=== PATIENT | male | born 1955 | race Caucasian/White ===

== ENCOUNTER 2017-09-24 12:20 | Day surgery (SDC) | payer OTHER ==
[~2017-09-24 12:20] MED LIST: Buffered Lidocaine 0.9% SYRIN* 5 ML/SYR SYRINGE INTRADERM ONE; Famotidine IV* 10 MG/ML 2 ML (20 mg) IV ONE
[2017-09-24] MEDS ORDERED: Famotidine IV* 10 MG/ML 2 ML (20 mg) ONE (12:21)
[2017-09-24] MEDS ORDERED: Buffered Lidocaine 0.9% SYRIN* 5 ML/SYR SYRINGE ONE (12:22)
[2017-09-24] MEDS ORDERED: Midazolam* 1 MG/ML 2 ML VIAL (2 MG) ONE ×2 (14:48→14:56)
[2017-09-24] MEDS ORDERED: fentaNYL* 50 MCG/ML 2 ML VIAL (100 MCG VIAL) ONE (14:49)
[2017-09-24] MEDS ORDERED: Propofol* 10 MG/ML 20 ML BTL IV PUSH ONE ×2 (14:55→15:24)
[2017-09-24] MEDS ORDERED: Naloxone* 0.4 MG/ML 1 ML VIAL IV PRN (15:32)
[2017-09-24 16:20] VITALS: BP 112/71
--- NOTE | 2017-09-25 14:37 | PRO ---
DATE: 09/24/17 [facility] REFERRING PHYSICIAN: Clark Wilks MD * PROCEDURE: Upper gastrointestinal endoscopy and biopsy, proximal jejunum; colonoscopy and ileoscopy. 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 His CBC in July 2017 was hemoglobin 12.3, MCV 74, the only values in our system. 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 He is now 89. He states he has never been told he has anemia before and does not take any specific supplements. He does take a full strength aspirin once or twice a day because of knee pain. He found ibuprofen and Celebrex ineffective. His stool was heme negative. He had a colonoscopy 8 or 9 years ago in [place] that was per report negative. Informed consent was obtained with an opportunity for questions, special concerns and a travel discussion. ENDOSCOPIST: Dr. Mccarthy. MEDICATIONS: Propofol, MAC with anesthesia assistance, Dr. Powell. FINDINGS: He is a very substantially overweight middle-aged man, in no distress. EGD: Larynx - symmetric, limited views. Esophagus - easily entered and the mucosa is normal in the upper, mid and lower esophagus with EG junction at 38. Gastric pouch - normal with surgical changes seen. The EG junction directly and via retroflexion was normal. The anastomosis had three flat sutures without any granulation tissue or erosion. Jejunum - run for 50 cm, possibly 55, and no abnormalities noted. Two biopsies were taken at 20 cm. COLONOSCOPY: Initial views show a good prep and normal mucosa. Air retention was poor as the sphincter tone seemed quite reduced. The scope advanced through the sigmoid, descending, transverse and right colon. The cecum was washed clear. The ileocecal valve and 15 cm of terminal ileum are normal. On slow withdrawal, excellent segmental views were normal and no polyps seen. No blood was seen. There were no diverticula. Final views in the rectum including retroflexion were normal. IMPRESSION: 1. Status post gastrointestinal bypass - normal anatomy. 2. Normal colonoscopy and ileoscopy. 3. Iron-deficiency anemia - presumably secondary to chronic nutritional effects of the bypass, possibly with some NSAID enhancement of iron losses. He will be asked to take an iron supplement low dose and follow up in the office to discuss long-term nutrition post bypass. [id number] #: [id number] [place]
== END 2017-09-24 16:35 | disposition home or self-care (01) ==
LOC: OR 12:20
PROVIDERS: ATTEND Internal Medicine Gastroenterology
DX: D50.9 Iron deficiency anemia, unspecified (principal); Z98.84 Bariatric surgery status; Z98.0 Intestinal bypass and anastomosis status; Z79.82 Long term (current) use of aspirin; K21.9 Gastro-esophageal reflux disease without esophagitis; J45.909 Unspecified asthma, uncomplicated
CPT/HCPCS: 88305; J2250; J2704; J3010